=== PATIENT | female | born 1970 | race Caucasian/White ===

== ENCOUNTER → 2024-04-28 09:33 | Outpatient (REF) | payer BC, SELFPAY | LOC: HWRAD 09:33 | PROVIDERS: ATTENDING PHYSICIAN Family Medicine | DX: Z13.820 Encounter for screening for osteoporosis (principal); M89.319 Hypertrophy of bone, unspecified shoulder | CPT/HCPCS: 73000; 77080 ==

== ENCOUNTER 2024-10-29 06:21 | Day surgery (SDC) | payer BC, SELFPAY | END 2024-10-29 12:06 | disposition home or self-care (01) | LOC: GI 06:21 | PROVIDERS: ATTENDING PHYSICIAN Specialist | DX: Z12.11 Encounter for screening for malignant neoplasm of colon (principal); K63.5 Polyp of colon; D17.5 Benign lipomatous neoplasm of intra-abdominal organs | CPT/HCPCS: 45385; 88305 ==